=== PATIENT | male | born 1950 | race African-American/Black ===

== ENCOUNTER 2017-01-23 16:03 | Emergency (ER) | payer MEDICARE, OTHER ==
[~2017-01-23] VITALS: Ht 175.3 cm; Wt 58.0 kg
[~2017-01-23 16:03] MED LIST: LISI-661 GT; MULT-950 GT; PANT40TA25 GT; VARD10TA20 GT
[2017-01-23 16:31] LABS: BASOPHILS % (AUTO) 0.3 % (0.0-2.0); EOSINOPHILS % (AUTO) 0.1 % (1.0-6.0); HEMATOCRIT 37.5 % (41-53); HEMOGLOBIN 12.4 g/dL (13.5-17.5); LYMPHOCYTES # (AUTO) 2.1 K/uL (1.0-4.8); LYMPHOCYTES % (AUTO) 22.5 % (22.0-44.0); MEAN CORPUSCULAR HEMOGLOBIN 30.8 pg (26.0-34.0); MEAN CORPUSCULAR HGB CONC 33.1 G/dL (31.0-37.0); MEAN CORPUSCULAR VOLUME 93 fL (80-100); MONOCYTES # (AUTO) 1.5 K/uL (0.1-1.0); MONOCYTES % (AUTO) 16.1 % (2.0-9.0); NEUTROPHILS # (AUTO) 5.6 K/uL (1.8-7.7); PLATELET COUNT (AUTO) 242 K/uL (150-450); RED BLOOD CELL COUNT(AUTO) 4.03 MIL/uL (4.50-5.90); RED CELL DISTRIBUTION WIDTH 14.4 % (11.5-14.5); WHITE BLOOD COUNT (AUTO) 9.2 K/uL (4.5-11.0)
[2017-01-23 16:40] LABS: ANION GAP 9 mmol/L (8-16); CALCIUM, TOTAL 9.4 mg/dL (8.8-10.5); CARBON DIOXIDE 29 mmol/L (22-29); CHLORIDE 95 mmol/L (98-107); CREATININE 0.96 mg/dL (0.60-1.30); GLOMERULAR FILTR. RATE CALC > 60 mL/min (>60); SODIUM SERUM 133 mmol/L (136-145); UREA NITROGEN, BLOOD 9 mg/dL (7-18)
[2017-01-23 16:46] LABS: ALANINE AMINOTRANSFERASE 99 U/L (12-78); ALBUMIN 3.3 g/dL (3.4-5.0); ASPARTATE AMINOTRANSFERASE 135 U/L (15-37); BILIRUBIN,TOTAL 1.2 mg/dL (0.1-1.0); TOTAL PROTEIN, SERUM 8.1 g/dL (6.4-8.2)
[2017-01-23] MEDS ORDERED: PANTOPRAZOLE SODIUM 40 MG/VIAL IVP ONE (17:00)
[2017-01-23] MEDS ORDERED: MORPHINE SULFATE 2 MG/ML SYRINGE IVP ONE (17:00)
[2017-01-23] MEDS ORDERED: ONDANSETRON HCL 4 MG/2 ML VIAL IVP ONE (17:00)
[2017-01-23 17:16] LABS: CREATINE KINASE, TOTAL 52 U/L (39-308)
[2017-01-23 19:26] LABS: CREATINE KINASE, TOTAL 46 U/L (39-308)
[2017-01-23 19:57] VITALS: BP 144/84
== END 2017-01-23 20:07 | disposition home or self-care (01) ==
LOC: EMS 16:05
DX: R07.9 Chest pain, unspecified (principal); K21.9 Gastro-esophageal reflux disease without esophagitis
CPT/HCPCS: 36415; 71010; 80053; 82550; 84484; 85025; 93005; 96374; 96375; 99285; C9113; J2270; J2405

== ENCOUNTER 2023-09-12 19:26 | Inpatient (IN) | payer OTHER ==
[~2023-09-12] VITALS: Ht 175.3 cm; Wt 67.4 kg
[~2023-09-12 19:26] MED LIST changes: -LISI-661 GT; +LISI-893 GT; +PANT-31 GT; -PANT40TA25 GT
[2023-09-12 21:26] LABS: BASOPHILS % (AUTO) 0.3 % (0.0-2.0); EOSINOPHILS % (AUTO) 0.2 % (1.0-6.0); HEMATOCRIT 45.4 % (41-53); HEMOGLOBIN 15.4 g/dL (13.5-17.5); LYMPHOCYTES # (AUTO) 1.8 K/uL (1.0-4.8); LYMPHOCYTES % (AUTO) 16.7 % (22.0-44.0); MEAN CORPUSCULAR HEMOGLOBIN 30.8 pg (26.0-34.0); MEAN CORPUSCULAR HGB CONC 33.9 G/dL (31.0-37.0); MEAN CORPUSCULAR VOLUME 91 fL (80-100); MONOCYTES # (AUTO) 1.1 K/uL (0.1-1.0); MONOCYTES % (AUTO) 9.7 % (2.0-9.0); NEUTROPHILS % (AUTO) 73.1 % (40.0-70.0); PLATELET COUNT (AUTO) 223 K/uL (150-450); RED CELL DISTRIBUTION WIDTH 13.2 % (11.5-14.5); WHITE BLOOD COUNT (AUTO) 10.9 K/uL (4.5-11.0)
[2023-09-12 21:40] LABS: PROTHROMBIN TIME 10.6 SEC (9.4-11.6)
[2023-09-12 21:47] LABS: ANION GAP 2 mmol/L (8-16); CALCIUM, TOTAL 9.7 mg/dL (8.8-10.5); CARBON DIOXIDE 32 mmol/L (22-29); CHLORIDE 103 mmol/L (98-107); CREATININE 1.08 mg/dL (0.60-1.30); GLOMERULAR FILTR. RATE CALC > 60 mL/min (>60); GLUCOSE,RANDOM 125 mg/dL (70-110); POTASSIUM 4.7 mmol/L (3.5-5.1); SODIUM SERUM 137 mmol/L (136-145); UREA NITROGEN, BLOOD 29 mg/dL (7-18)
[2023-09-12 21:53] LABS: ALANINE AMINOTRANSFERASE 86 U/L (12-78); ALBUMIN 3.4 g/dL (3.4-5.0); ALKALINE PHOSPHATASE 121 U/L (46-116); ASPARTATE AMINOTRANSFERASE 73 U/L (15-37); BILIRUBIN,TOTAL 0.4 mg/dL (0.1-1.0); LIPASE 32 U/L (16-77); TOTAL PROTEIN, SERUM 9.5 g/dL (6.4-8.2)
[2023-09-12 23:21] LABS: APPEARANCE,URINE HAZY (CLEAR); BILIRUBIN,URINE NEGATIVE (NEGATIVE); COLOR,URINE YELLOW (YELLOW); GLUCOSE, URINE (UA) NEGATIVE (NEGATIVE); KETONES,URINE NEGATIVE (NEGATIVE); LEUKOCYTE ESTERASE ,URINE SMALL (NEGATIVE); NITRATE,URINE POSITIVE (NEGATIVE); OCCULT BLOOD,URINE NEGATIVE (NEGATIVE); PROTEIN,URINE TRACE mg/dL (NEGATIVE); SPECIFIC GRAVITIY, URINE 1.019 (1.003-1.030); UROBILINOGEN,URINE <=1.0 mg/dL (<=1.0)
[2023-09-12] MEDS ORDERED: PANTOPRAZOLE SODIUM 40 MG/VIAL IVP ONE (23:30)
[2023-09-12 23:37] LABS: BACTERIA,URINE Moderate /HPF (None Seen); RBC,URINE None Seen /HPF (0-2); SQUAMOUS EPITHELIAL CELL,UR None Seen /LPF (None Seen)
[2023-09-12] MEDS ORDERED: IOHEXOL 350 MG/ML 100 ML VIAL ONE (23:38)
[2023-09-12] MEDS ORDERED: SODIUM CHLORIDE 0.9% 100 ML ONE (23:38)
[2023-09-13] VITALS (7 sets, daily range): BP systolic 109–168; BP diastolic 63–100; PULSE 68–96; RESP 17–20; TEMP 97.5–98.3
[2023-09-13 01:01] LABS: HEMATOCRIT 44.6 % (41-53); HEMOGLOBIN 15.1 g/dL (13.5-17.5)
[2023-09-13] MEDS ORDERED: ONDANSETRON HCL 4 MG/2 ML VIAL IVP PRN (01:15)
[2023-09-13 01:42] LABS: OCCULT BLOOD,GASTRIC FLUID POSITIVE (NEGATIVE); PH, GASTRIC OKAY
[2023-09-13 01:56] LABS: COVID AG,FIA SOURCE NASAL SWAB
[2023-09-13 02:13] LABS: SARS-COV2 (COVID) ANTIGEN,FIA Negative (Negative)
[2023-09-13] MEDS: PIPERACILLIN/TAZO 3.375 GM/D5W 50 ML IV SCH ×4 (02:39→21:36)
[2023-09-13] MEDS: PANTOPRAZOLE SODIUM 80 MG in SODIUM CHLORIDE 0.9% 100 ML IV SCH ×3 (02:43→21:37)
[2023-09-13] MEDS: RINGERS SOLUTION,LACTATED 1,000 ML IV SCH ×2 (04:30→10:41)
[2023-09-13] MEDS: BISACODYL 10 MG RECTAL RECTAL SUPPOSITORY PR ONE ×2 (04:30→05:30)
[2023-09-13] MEDS ORDERED: POLYETHYLENE GLYCOL 3350 17 GM PACKET GT ONE (13:45)
[2023-09-14] MEDS: PIPERACILLIN/TAZO 3.375 GM/D5W 50 ML IV SCH ×2 (03:22→09:22)
[2023-09-14 05:22] VITALS: BP 106/57; PULSE 67; RESP 19; TEMP 98.2
[2023-09-14] MEDS: RINGERS SOLUTION,LACTATED 1,000 ML IV SCH ×2 (07:15→09:31)
[2023-09-14 07:29] VITALS: BP 137/70; PULSE 74; RESP 18; TEMP 98
[2023-09-14] MEDS: PANTOPRAZOLE SODIUM 80 MG in SODIUM CHLORIDE 0.9% 100 ML IV SCH (08:39)
[2023-09-14 10:20] LABS: BASOPHILS % (AUTO) 0.5 % (0.0-2.0); EOSINOPHILS % (AUTO) 4.9 % (1.0-6.0); HEMATOCRIT 41.1 % (41-53); LYMPHOCYTES # (AUTO) 2.4 K/uL (1.0-4.8); LYMPHOCYTES % (AUTO) 38.5 % (22.0-44.0); MEAN CORPUSCULAR HEMOGLOBIN 31.2 pg (26.0-34.0); MEAN CORPUSCULAR HGB CONC 34.2 G/dL (31.0-37.0); MEAN CORPUSCULAR VOLUME 91 fL (80-100); MONOCYTES # (AUTO) 0.9 K/uL (0.1-1.0); MONOCYTES % (AUTO) 14.1 % (2.0-9.0); NEUTROPHILS # (AUTO) 2.6 K/uL (1.8-7.7); PLATELET COUNT (AUTO) 197 K/uL (150-450); RED CELL DISTRIBUTION WIDTH 13.1 % (11.5-14.5); WHITE BLOOD COUNT (AUTO) 6.1 K/uL (4.5-11.0)
[2023-09-14 10:30] LABS: ANION GAP 3 mmol/L (8-16); CALCIUM, TOTAL 8.6 mg/dL (8.8-10.5); CARBON DIOXIDE 31 mmol/L (22-29); CHLORIDE 104 mmol/L (98-107); CREATININE 1.09 mg/dL (0.60-1.30); GLOMERULAR FILTR. RATE CALC > 60 mL/min (>60); GLUCOSE,RANDOM 127 mg/dL (70-110); POTASSIUM 3.9 mmol/L (3.5-5.1); SODIUM SERUM 138 mmol/L (136-145); UREA NITROGEN, BLOOD 21 mg/dL (7-18)
[2023-09-14 11:22] VITALS: BP 123/67; PULSE 70; RESP 18; TEMP 98.2
[2023-09-14 16:13] VITALS: BP 144/74; PULSE 67; RESP 18; TEMP 97.7
[2023-09-14] MEDS ORDERED: BISACODYL 10 MG RECTAL RECTAL SUPPOSITORY PR ONE (19:15)
[2023-09-14 20:15] VITALS: BP 139/66; PULSE 73; RESP 19; TEMP 97.6
[2023-09-14] MEDS: OMEPRAZOLE 20 MG CAPSULE PEG SCH (21:51)
[2023-09-15 00:09] VITALS: BP 132/67; PULSE 71; RESP 19; TEMP 97.7
[2023-09-15 04:42] VITALS: BP 128/72; PULSE 74; RESP 16; TEMP 97.5
[2023-09-15 07:56] VITALS: BP 145/77; PULSE 76; RESP 18; TEMP 97.9
[2023-09-15] MEDS: OMEPRAZOLE 20 MG CAPSULE PEG SCH (10:02)
[2023-09-15] MEDS ORDERED: CefTRIAXone 1 GM/DEXTROSE 50 ML IV ONE (11:00)
[2023-09-15 11:15] VITALS: BP 114/58; PULSE 67; RESP 18; TEMP 98.1
[2023-09-15] MEDS ORDERED: CIPROFLOXACIN HCL 250 MG TABLET PO SCH (21:00)
== END 2023-09-15 15:50 | DRG 377 ==
LOC: EMS 19:28 → 5N 09-13 05:04
PROVIDERS: ADMIT Internal Medicine; ATTEND Internal Medicine
DX: K92.2 Gastrointestinal hemorrhage, unspecified (principal); E43 Unspecified severe protein-calorie malnutrition; N39.0 Urinary tract infection, site not specified; E88.A Wasting disease (syndrome) due to underlying condition; Z68.21 Body mass index [BMI] 21.0-21.9, adult; R13.10 Dysphagia, unspecified; K21.9 Gastro-esophageal reflux disease without esophagitis; I10 Essential (primary) hypertension; Z20.822 Contact with and (suspected) exposure to COVID-19; K56.41 Fecal impaction; Z93.1 Gastrostomy status; Z85.818 Personal history of malignant neoplasm of other sites of lip, oral cavity, and pharynx; Z85.01 Personal history of malignant neoplasm of esophagus; Z87.442 Personal history of urinary calculi; Z94.7 Corneal transplant status; Z88.8 Allergy status to other drugs, medicaments and biological substances; Z79.899 Other long term (current) drug therapy; Z74.01 Bed confinement status
CPT/HCPCS: 71045; 74177; 76705; 80048; 80053; 81001; 82271; 83690; 83735; 85014; 85018; 85025; 85610; 85730; 86850; 86900; 86901; 87086; 87186; 93005; 99291; C9113; J0696; J2543; J7050; J7120; Q9967; 36415-L1; 36415-TC